=== PATIENT | female | born 1960 | race Asian ===

== ENCOUNTER 2016-11-27 17:19 | Emergency (ER) | payer OTHER ==
[2016-11-27 17:46] VITALS: BP 115/65
--- NOTE | 2016-11-27 17:51 | UC ---
UC General HPI - HPI Summary HPI Summary: Patient complaining of FELDMAN, fever, cough and "hot" throat for 1 day. - History of Current Complaint Chief Complaint: UCRespiratory Stated Complaint: CHILLS, ACHES, AND COUGH Time Seen by Provider: 11/27/16 17:46 Hx Obtained From: Patient Timing: Constant Onset Severity: Moderate Current Severity: Moderate Pain Intensity: 7 Associated Signs & Symptoms: Positive: Cough, Fever, Headache - Allergy/Home Medications Allergies/Adverse Reactions: Allergies Allergy/AdvReac Type Severity Reaction Status Date / Time Pollen Extract Allergy Severe SNEEZING, Verified 11/27/16 17:46 CONGESTION PMH/Surg Hx/FS Hx/Imm Hx Previously Healthy: Yes Endocrine History Of: Denies: Diabetes, Thyroid Disease, Hyperthyroidism, Hypothyroidism, Dyslipidemia Cardiovascular History Of: Denies: Cardiac Disorders, Hypertension, Pacemaker/ICD, Myocardial Infarction , Congestive Heart Failure, Atrial Fibrillation, Deep Vein Thrombosis, Bleeding Disorders Respiratory History Of: Denies: COPD, Asthma, Bronchitis, Pneumonia, Pulmonary Embolism GI/ History Of: Denies: Gastroesophageal Reflux, Ulcer, Gastrointestinal Bleed, Gall Bladder Disease, Kidney Stones, Diverticulitis, Renal Disease, Urosepsis Neurological History Of: Denies: TIA, CVA, Dementia, Seizures, Migraine Psychological History Of: Denies: Anxiety, Depression, Bipolar Disorder, Schizophrenia, Post Traumatic Stress Disorder Cancer History Of: Denies: Lung Cancer, Colorectal Cancer, Breast Cancer, Prostate Cancer, Cervical Cancer Other History Of: Negative For: HIV, Hepatitis B, Hepatitis C, Anticoagulant Therapy - Surgical History Surgical History: Yes Surgery Procedure, Year, and Place: TUBAL LIGATION - Family History Known Family History: Positive: Cardiac Disease, Hypertension - Social History Alcohol Use: None Substance Use Type: None Smoking Status (MU): Never Smoked Tobacco Have You Smoked in the Last Year: No Review of Systems Constitutional: Fever, Chills, Fatigue Skin: Negative Eyes: Negative ENT: Sore Throat, Nasal Discharge Respiratory: Shortness Of Breath, Cough Cardiovascular: Negative Gastrointestinal: Negative Genitourinary: Negative Motor: Negative Neurovascular: Negative Musculoskeletal: Myalgia Neurological: Headache Psychological: Negative All Other Systems Reviewed And Are Negative: Yes Physical Exam Triage Information Reviewed: Yes Appearance: No Pain Distress, Well-Nourished, Ill-Appearing Vital Signs: Initial Vital Signs Temp 100.6 F 11/27/16 17:43 Pulse 106 11/27/16 17:43 Resp 20 11/27/16 17:43 BP 115/65 11/27/16 17:43 Pulse Ox 99 11/27/16 17:43 Vital Signs Reviewed: Yes Eye Exam: Normal Eyes: Positive: Conjunctiva Clear ENT: Positive: Hearing grossly normal, Pharyngeal erythema, Nasal congestion, TM red, Muffled/hoarse voice Dental Exam: Normal Neck exam: Normal Neck: Positive: Supple, Nontender, No Lymphadenopathy Respiratory: Positive: Chest non-tender, Lungs clear, Normal breath sounds Cardiovascular: Positive: No Murmur, Pulses Normal, Tachycardia Abdominal Exam: Normal Abdomen Description: Positive: Nontender, No Organomegaly, Soft Bowel Sounds: Positive: Present Musculoskeletal Exam: Normal Musculoskeletal: Positive: Strength Intact, ROM Intact, No Edema Neurological Exam: Normal Neurological: Positive: Alert, Muscle Tone Normal Psychological Exam: Normal Skin Exam: Normal Course/Dx - Course Course Of Treatment: hx btained, exam performed, rapid flu obtained, - Differential Dx - Multi-Symptom Provider Diagnoses: URI. COUGH. FEVER Discharge - Discharge Plan Condition: Stable Disposition: HOME Patient Education Materials: Upper Respiratory Infection (ED) Forms: *Work Release Additional Instructions: Take the medications as prescribed. Continue with ibuprofen or Tylenol for pain and fever. Get plenty of rest and increase your fluid intake. Viral illness can take a good week to finish. Follow up with any worsening symptoms.
== END 2016-11-27 18:47 | disposition home or self-care (01) ==
LOC: UCEAST 17:19
DX: J06.9 Acute upper respiratory infection, unspecified (principal); R05 Cough; R50.9 Fever, unspecified
CPT/HCPCS: 87502; 99212; G0463

== ENCOUNTER 2017-03-20 10:12 | Emergency (ER) | payer OTHER ==
[2017-03-20 11:22] VITALS: BP 151/89
--- NOTE | 2017-03-20 12:09 | UC ---
UC General HPI - HPI Summary HPI Summary: TODAY WHILE AT WORK PT'S BOSS STARTED ORDERING HER AROUND. HE IS APPARENTLY QUITE CONFRONTATIONAL AND PT IS LEGITIMATELY AFRAID OF HIM. THIS IS NOT NEW. TODAY SHE WAS SO SCARED SHE BECAME QUITE ANXIOUS, HAD HEART PALPITATIONS AND WAS TEARFUL. STARTED RAMBLING AND MIXED UP HER GREEK AND SINGAPOREAN. CO-WORKERS WERE CONCERNED ABOUT THIS AND DROPPED HER OFF HERE FOR EVALUATION. HER FRIEND AND UNION LIAISON MET HER HERE AND PT WAS ABLE TO CALM DOWN. - History of Current Complaint Chief Complaint: UCGeneralIllness Stated Complaint: HAS GAS Time Seen by Provider: 03/20/17 11:23 Hx Obtained From: Patient, Family/Farm Assistant - MANAGER IMMUNOLOGY/FRIEND Onset/Duration: Sudden Onset, Lasting Hours, Still Present Timing: Constant Onset Severity: Moderate Current Severity: Moderate Pain Intensity: 0 Associated Signs & Symptoms: Positive: Palpitations, Other - ANXIETY - Allergy/Home Medications Allergies/Adverse Reactions: Allergies Allergy/AdvReac Type Severity Reaction Status Date / Time Pollen Extract Allergy Severe SNEEZING, Verified 11/27/16 17:46 CONGESTION PMH/Surg Hx/FS Hx/Imm Hx Previously Healthy: Yes Endocrine History Of: Denies: Diabetes, Thyroid Disease, Hyperthyroidism, Hypothyroidism, Dyslipidemia Cardiovascular History Of: Denies: Cardiac Disorders, Hypertension, Pacemaker/ICD, Myocardial Infarction , Congestive Heart Failure, Atrial Fibrillation, Deep Vein Thrombosis, Bleeding Disorders Respiratory History Of: Denies: COPD, Asthma, Bronchitis, Pneumonia, Pulmonary Embolism GI/ History Of: Denies: Gastroesophageal Reflux, Ulcer, Gastrointestinal Bleed, Gall Bladder Disease, Kidney Stones, Diverticulitis, Renal Disease, Urosepsis Neurological History Of: Denies: TIA, CVA, Dementia, Seizures, Migraine Psychological History Of: Denies: Anxiety, Depression, Bipolar Disorder, Schizophrenia, Post Traumatic Stress Disorder Cancer History Of: Denies: Lung Cancer, Colorectal Cancer, Breast Cancer, Prostate Cancer, Cervical Cancer Other History Of: Negative For: HIV, Hepatitis B, Hepatitis C, Anticoagulant Therapy - Surgical History Surgical History: Yes Surgery Procedure, Year, and Place: TUBAL LIGATION, EYE SX - Family History Known Family History: Positive: Cardiac Disease, Hypertension - Social History Alcohol Use: None Substance Use Type: None Smoking Status (MU): Never Smoked Tobacco Have You Smoked in the Last Year: No Review of Systems Constitutional: Negative Respiratory: Negative Cardiovascular: Palpitations Gastrointestinal: Negative Psychological: Anxious All Other Systems Reviewed And Are Negative: Yes Physical Exam Triage Information Reviewed: Yes Appearance: Well-Appearing, No Pain Distress, Well-Nourished, Other: - ANXIOUS, TEARFUL Vital Signs: Initial Vital Signs Temp 98.3 F 03/20/17 10:21 Pulse 81 03/20/17 10:21 Resp 18 03/20/17 10:21 BP 153/83 03/20/17 10:21 Pulse Ox 100 03/20/17 10:21 Vital Signs Reviewed: Yes Eyes: Positive: Conjunctiva Clear ENT: Positive: Hearing grossly normal Neck: Positive: Supple Respiratory Exam: Normal Cardiovascular Exam: Normal Abdomen Description: Positive: Soft Musculoskeletal: Positive: No Edema Neurological: Positive: Alert Psychological: Positive: Age Appropriate Behavior, Other: - ANXIOUS, TEARFUL Skin: Negative: rashes Course/Dx - Course Course Of Treatment: PT QUITE DISTRESSED ABOUT ENCOUNTER WITH HER BOSS. JEREMI STOKES DESCRIBED HIM A BULLY AND STATES SHE IS GOING TO RESOLVE THE ISSUE. PT FEELING BETTER. - Differential Dx - Multi-Symptom Provider Diagnoses: ANXIETY Discharge - Discharge Plan Condition: Stable Disposition: HOME Patient Education Materials: Anxiety (ED) Referrals: Mansoor Penaloza MD [Primary Care Provider] - If Needed Additional Instructions: YOUR SYMPTOMS ARE LIKELY DUE TO YOUR ACUTE ANXIETY STEMMING FROM THE ENCOUNTER WITH YOUR BOSS. KEEP IN CONTACT WITH YOUR MANAGER IMMUNOLOGY TO TRY TO RESOLVE THE CONFLICT. GO TO THE ER WITHOUT FAIL IF YOUR SYMPTOMS PERSIST.
== END 2017-03-20 12:07 | disposition home or self-care (01) ==
LOC: UCEAST 10:12
DX: F41.9 Anxiety disorder, unspecified (principal)
CPT/HCPCS: 99212; G0463

== ENCOUNTER 2018-04-12 10:18 | Emergency (ER) | payer OTHER ==
--- OUTSIDE RECORDS SUMMARY | 2018-04-12 10:22 | XMS REPORT ---
:1960 External Reference #:[id number] Author Organization [facility] Address [address] [place] [address] [place] [address] Phone [phone] Care Team Providers Name Role Phone Mansoor Penaloza MD Primary Care Physician Unavailable Payers Type Date Identification Numbers Payment Provider Subscriber Commercial Policy Number: [id number] [employer] BELEM BERMAN Group Number: [id number] [id number] PayID: [id number] [place] [address] Workers Compensation Onset: 2016 PayID: [id number] Workers Compensation BELEM BERMAN Problems Date Description Provider Status Onset: 09/14/2016 Carpal tunnel syndrome of left wrist Phillip Cohcran MD Active Family History Date Family Member(s) Problem(s) Comments General No Current Problems Social History Type Date Description Comments Lives With Occupation diesel service technician ETOH Use Never used alcohol Smoking Patient has never smoked Exercise Type/Frequency Exercises regularly Allergies, Adverse Reactions, Alerts Date Description Reaction Status Severity Comments 09/14/2016 NKDA active Medications Medication Date Status Form Strength Qnty SIG Indications Ordering Provider Celebrex Active Capsules 100mg 60caps 1 tab by M75.41 David Cotter 017 mouth Adeola, twice a MD day as needed Naproxen Active Tablets 500mg 90tabs 1 po bid M75.41 David Cotter 016 prn pain MD Adeola Allergy D-12 0000/0 Active Tablets ER 5-120mg Unknown 000 12HR Vital Signs Date Vital Result Comment 04/03/2018 Height 61 inches 5'1" Weight 155.00 lb Heart Rate 76 /min BP Systolic 128 mmHg BP Diastolic 78 mmHg Pain Level 3 BMI (Body Mass Index) 29.3 kg/m2 12/05/2016 Height 61.5 inches 5'1.50" Weight 155.00 lb Heart Rate 78 /min BP Systolic 117 mmHg BP Diastolic 80 mmHg Pain Level 4 BMI (Body Mass Index) 28.8 kg/m2 10/24/2016 Height 61.5 inches 5'1.50" Weight 155.00 lb BP Systolic 132 mmHg BP Diastolic 80 mmHg Respiratory Rate 16 /min Pain Level 0 BMI (Body Mass Index) 28.8 kg/m2 09/28/2016 Height 64 inches 5'4" Weight 152.00 lb Heart Rate 60 /min Respiratory Rate 16 /min Pain Level 0 + Numbness and tingling BMI (Body Mass Index) 26.1 kg/m2 09/14/2016 Height 64 inches 5'4" Weight 152.00 lb Heart Rate 60 /min Respiratory Rate 16 /min Pain Level 5 BMI (Body Mass Index) 26.1 kg/m2 Results Description No Information Procedures Date CPT Code Description Status 04/03/2018 44657 Inject/Drain Joint/Bursa Major Completed Encounters Type Date Location Provider CPT E/M Dx Office Visit 12/05/2016 [facility], [address] M75.41 3:30p Chloe ZHANG Office Visit 10/24/2016 [facility], [address] M75.41 1:00p Chloe ZHANG S43.421A Office Visit 09/28/2016 8:40a [facility] [place] [address] G56.02 [facility] Office Visit 09/14/2016 10:00a [facility] [place] [address] G56.02 C.M.Estefany S43.421A M79.601 R20.2 R20.0 Plan of Care Future Appointment(s):06/03/2018 9:00 am - [facility] MD [facility]04/03/2018 - [facility], [id number] Effusion , left kneeNew Therapy:Physical TherapyFollow up:Follow up: 6 [id number] Pain in left kneeNew Therapy:Physical Therapy
--- NOTE | 2018-04-12 10:44 | UC ---
Skin Complaint HPI - HPI Summary HPI Summary: 58 y/o female presents to the urgent care accompany by c/o a rash on bilateral lower legs for the last couple 1 1/2 weeks. translates , but Pt understand Bruneian. Pt has taking taking Zyrtec, Benadryl topical cream and OTC poison larisa type creams without any relief of symptoms. states she is allergic to alcohol. His has left knee tapped about the same time and Orthopedic Dr use an alcohol swabs. He is not sure if that triggered the rahs or that his was doing some gardening kneeling. She denies any new socks, creams/lotions, bugs/bug bites, wading in pond/burt/standing water. She also states her B/L ear itches a lot. Pt denies eating or drinking something different. Pt denies fever, SOB, chest pain, abdominal pain, N/v/D - History of Current Complaint Time Seen by Provider: 04/12/18 10:41 Stated Complaint: RASH Hx Obtained From: Patient Hx Last Menstrual Period: menopausal Onset/Duration: Gradual Onset, Lasting Weeks - 1 1/2 week, Still Present Skin Exposure Onset/Duration: Weeks Ago - 1 1/2 week Timing: Constant Onset Severity: Mild Current Severity: Moderate Pain Intensity: 0 Pain Scale Used: 0-10 Numeric Location: Discrete - B/L lower legs w/ itchy rash Character: Pruritus, Redness Aggravating Factor(s): Touch Alleviating Factor(s): OTC Meds Associated Signs & Symptoms: Positive: Rash. Negative: Fever, Chills, Drainage , Tenderness Related History: Possible Reaction to: Environmental Exposure - Allergy/Home Medications Allergies/Adverse Reactions: Allergies Allergy/AdvReac Type Severity Reaction Status Date / Time pollen extracts Allergy Eyes Verified 04/12/18 11:03 Itchy/Swollen/Red/Watery Review of Systems Constitutional: Negative Skin: Rash - B/L lower legs w/ an itchy rash Eyes: Negative ENT: Ear Ache - RT itchy ear Respiratory: Negative Cardiovascular: Negative Gastrointestinal: Negative Genitourinary: Negative Motor: Negative Neurovascular: Negative Musculoskeletal: Negative Neurological: Negative Psychological: Negative Is Patient Immunocompromised?: No All Other Systems Reviewed And Are Negative: Yes PMH/Surg Hx/FS Hx/Imm Hx Previously Healthy: Yes - Pt denies PMHX Other History Of: Negative For: HIV, Hepatitis B, Hepatitis C, Anticoagulant Therapy - Surgical History Surgical History: Yes Surgery Procedure, Year, and Place: TUBAL LIGATION, EYE SX - Family History Known Family History: Positive: Cardiac Disease, Hypertension - Social History Occupation: Employed Full-time Lives: With Family Alcohol Use: None Substance Use Type: None Smoking Status (MU): Never Smoked Tobacco Have You Smoked in the Last Year: No Physical Exam - Summary Physical Exam Summary: Vital Signs Reviewed: Yes General: well developed, well nourished female sitting in the examining table w/ o any apparent distress. Eyes: Positive: Conjunctiva Clear - PERRLA, EOMI ENT: Positive: Normal ENT inspection, Hearing grossly normal, Pharynx normal, TMs normal Neck: Positive: Supple, Nontender, No Lymphadenopathy Respiratory: Positive: Chest nontender, Lungs clear, Normal breath sounds Cardiovascular: Positive: RRR, No Murmur, Pulses Normal Abdomen Description: Positive: Nontender, No Organomegaly, Soft. Negative: CVA Tenderness (R), CVA Tenderness (L) Bowel Sounds: Positive: Present Musculoskeletal: Positive: Strength Intact, ROM Intact, No Edema Neurological Exam: Normal Psychological Exam: Normal Skin: Positive: rashes - B/L legs bite with surrounding erythema, non tender to palpation. tick no longer present, no swelling or drainage observed. Triage Information Reviewed: Yes Course/Dx - Course Course Of Treatment: 58 y/o female presents to the urgent care accompany by c/o a rash on bilateral lower legs for the last couple 1 1/2 weeks. translates , but Pt understand Bruneian. Pt has taking taking Zyrtec, Benadryl topical cream and OTC poison larisa type creams without any relief of symptoms. states she is allergic to alcohol. His has left knee tapped about the same time and Orthopedic Dr use an alcohol swabs. He is not sure if that triggered the rahs or that his was doing some gardening kneeling. She denies any new socks, creams/lotions, bugs/bug bites, wading in pond/burt/standing water. She also states her B/L ear itches a lot. Pt denies eating or drinking something different. Pt denies fever, SOB, chest pain, abdominal pain, N/v/D. Hx obtained. Pt w/ a erythematous discrete maculopapular eruption on examiantion w/ signs of excoriation on examination. Pt's rash is unspecified , probably contact dermatitis. PT Rx Prednisone, triamcinolone topical cream and Benadryl PO for pruritus. Pt advised if not improvement or worsening of symptoms to return to the clinic or f/u with PCP for further treatment.PT understood and agreed with D/C instructions - Differential Diagnoses - Skin Complaint Differential Diagnoses: Abscess, Contact Dermatitis, Drug Rash, Local Allergic Reaction, Poison Larisa, Poison [place], Tick Born Illness, Urticaria - Diagnoses Provider Diagnoses: 1- Unspecified acute rash Discharge - Sign-Out/Discharge Documenting (check all that apply): Discharge/Admit/Transfer - D/c home - Discharge Plan Condition: Stable Disposition: HOME Prescriptions: diPHENhydraMINE PO* [Benadryl PO 25 MG TAB*] 25 mg PO TID PRN #20 tab PRN Reason: pruritus predniSONE TAB* [Deltasone 20 MG TAB*] 20 mg PO DAILY #11 tab Triamcinolone 0.1% CREAM (NF) [Kenalog 0.1% Cream (NF)] 1 applic TOPICAL BID #1 tube Patient Education Materials: Acute Rash (ED) Referrals: Mansoor Penaloza MD [Primary Care Provider] - 3 Days Additional Instructions: 1- Use the Triamcinolone topical cream to alleviate itching.Take Prednisone PO as directed to alleviate symptoms. 2-Take Benadryl PO to alleviate itchiness. 3-If symptoms do not improve or worsen please f/u with your PCP 3 days or return to the urgent care for further evaluation and treatment. - Billing Disposition and Condition Condition: STABLE Disposition: Home
[2018-04-12 11:03] VITALS: BP 119/68
== END 2018-04-12 11:35 | disposition home or self-care (01) ==
LOC: UCEAST 10:18
DX: R21 Rash and other nonspecific skin eruption (principal); H92.01 Otalgia, right ear; Z82.49 Family history of ischemic heart disease and other diseases of the circulatory system
CPT/HCPCS: 99212; G0463

== ENCOUNTER 2019-01-05 15:24 | Emergency (ER) | payer OTHER ==
--- OUTSIDE RECORDS SUMMARY | 2019-01-05 15:31 | XMS REPORT | Continuity of Care Document ---
:1960 External Reference #:[id number] Author Name Carlos Rodríguez Address [address] [facility] [facility] [place] [address] Care Team Providers Name Role Phone Nina Lambert Care Team Information Tack Welder Unavailable Nina Lambert Primary Care Physician Unavailable Payers Date Identification Numbers Payment Provider Subscriber Policy Number: [id number] [facility] BELEM BERMAN PayID: [id number] [address] [place] [address] Advance Directives Description No Information Available Problems Description No Information Family History Date Family Member(s) Observation Comments Mother 94 Children 3 chilren, all healthy. [place], [place]. Siblings 2 brother, 3 sisters. DM. 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 Marital Status Legal Status: Marital Status Came to the [place] from [place] 02/19/1985. Lives With Spouse and mother in law. Lives With children 1 close by, 1 in [place], 1 in [facility]. 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 Tobacco Use Start: Unknown Never Smoked Cigarettes Smoking Status Reviewed: 01/17/18 Never Smoked Cigarettes ETOH Use Denies alcohol use Exercise Exercises sporadically does calisthenics at Type/Frequency home. 3 times weekly 1/2 hour. Seat Belt/Car Seat Always uses seat belt Dom Violence Screen screening has been done Dom Violence Screen feels safe home, at work, and in the community. Allergies, Adverse Reactions, Alerts Date Description Reaction Status Severity Comments 09/18/2013 Outside Allergens Active Medications Medication Date Status Form Strength Qnty SIG Indications Ordering Provider Hydrocortisone 01/21/ Active Cream 2.5% 30gm apply K64.8 Nina Khanna 2018 small Fausto, amount M.D. two times daily Zyrtec Allergy / Active Capsules 10mg use 1 by Unknown 0000 mouth q.d Naproxen / Active Tablets 500mg 1 by Unknown 0000 mouth twice a day with food Proctocort 01/17/ Hx Cream 1% 28.4u apply K64.8 Nina Khanna 2018 - nits fuentes Lambert 01/21/ amount M.D. 2018 two times daily Acetaminophen-Co 03/11/ Hx Tablets 300-30mg 30tab 1 by 724.79 twin Servin #3 2015 - s mouth M.D. 11/04/ every 6 2016 hours as needed Benzonatate 03/11/ Hx Capsules 200mg 60cap 1 by 786.2 Felicitas Servin - s mouth M.D. 11/04/ three 2016 times a day as needed for cough Zyrtec Allergy 09/18/ Hx Tablets 10mg 30tab 1 po qd Family 2013 - s Medicine 01/17/ [facility] 09/18/ Hx low back 724.2 Nina Khanna Evaluate And 2012 - pain Fausto Treat 03/11/ poor M.DRober 2015 core strength . Nasonex / Hx Suspension 50mcg/Act 2 sprays Unknown 0000 - in each 01/17/ nostril 2018 daily Symbicort / Hx Aerosol 160-4.5mc 2 puff Unknown 0000 - g/Act twice a day 2018 Immunizations CPT Code Status Date Vaccine Lot # [id number] Given 08/13/2016 Influenza Vac, Quadriv[place] [address] Given 08/13/2016 Influenza Vac, Quadrivalent, Slit Virus, Im [id number] 82659 Given 09/16/2015 Influenza Vac, Quadrivalent, Slit Virus, Im [id number] Given 08/06/2011 Tdap Tetanus, W Pertussis 92769 Given 08/06/2011 DO Not Use Split Influenza Virus Vaccine 34696 Given 10/08/2010 DO Not Use Split Influenza Virus Vaccine 16031 Given 10/09/2009 H1N1 Virus Vaccine 64831 Given 07/15/2009 DO Not Use Split Influenza Virus Vaccine 62469 Given 11/22/2002 Tetanus And Diptheria Adult Preservative Free >7Yrs Vital Signs Date Vital Result Comment 12/08/2018 3:07pm BP Systolic 116 mmHg BP Diastolic 64 mmHg Heart Rate 72 /min Body Temperature 98.7 F Respiratory Rate 16 /min Height 61 inches 5'1" Weight 157.00 lb BMI (Body Mass Index) 29.7 kg/m2 12/04/2018 3:40pm BP Systolic 110 mmHg BP Diastolic 70 mmHg Heart Rate 76 /min Body Temperature 97.9 F Respiratory Rate 20 /min Weight 161.00 lb 09/24/2018 5:34pm BP Systolic 110 mmHg BP Diastolic 72 mmHg Heart Rate 56 /min Body Temperature 97.7 F Respiratory Rate 17 /min 01/17/2018 1:57pm BP Systolic 110 mmHg BP Diastolic 80 mmHg Heart Rate 76 /min Body Temperature 98.1 F Respiratory Rate 18 /min Height 61 inches 5'1" Weight 158.00 lb BMI (Body Mass Index) 29.9 kg/m2 11/04/2015 12:47pm BP Systolic 110 mmHg BP Diastolic 68 mmHg Heart Rate 68 /min Body Temperature 98.1 F Respiratory Rate 18 /min Height 61 inches 5'1" Weight 152.00 lb BMI (Body Mass Index) 28.7 kg/m2 03/11/2015 3:58pm BP Systolic 110 mmHg BP Diastolic 70 mmHg Heart Rate 76 /min Body Temperature 98.4 F Respiratory Rate 16 /min Height 61 inches 5'1" Weight 154.00 lb BMI (Body Mass Index) 29.1 kg/m2 09/18/2013 1:06pm BP Systolic 112 mmHg BP Diastolic 72 mmHg Heart Rate 64 /min Body Temperature 97.7 F Height 61 inches 5'1" Weight 147.38 lb BMI (Body Mass Index) 27.8 kg/m2 Results Test Date Facility Test Result H/L Range Note Laboratory test [facility] Mycobacterial See Comment 1, 2 finding 8 Culture Laboratory test [facility] Hemoglobin A1c 5.9 % High 4.1- 5.7 finding 8 (607)- - ([facility]) Comprehensive Jose Viviane ([facility]) Sodium 142 mEq/L 134-149 Metabolic Prof 8 Potassium 3.9 mEq/L 3.6-5.5 Chloride 100 mEq/L 94-112 Carbon Dioxide 29 mEq/L 21-32 Glucose 124 mg/dL High 70-105 BUN 10 mg/dL 6-26 Creatinine 0.6 mg/dL 0.6-1.4 BUN/Creat Ratio 16.7 CALC 8.0-36.0 Calcium 9.3 mg/dL 8.6-10.2 Total Protein 7.4 g/dL 6.4-8.3 Albumin 4.8 g/dL 3.8-5.5 Globulin 2.6 g/dL 2.0-4.8 A/G Ratio 1.8 CALC 0.6-2.3 Alk. Phosphatase 48 U/L 30-110 Alt (SGPT) 16 U/L 7-35 Ast (Sgot) 15 U/L 5-34 Total Bilirubin 0.7 mg/dL 0.2-1.3 GFR Non- >60 ml/min/1.73m^ >=60 GFR >60 ml/min/1.73m^ >=60 Lipid Profile 01/10/2018 Jose Viviane ([facility]) Cholesterol 229 mg/dL High 120-200 Triglycerides 97 mg/dL 30-200 HDL Cholesterol 74 mg/dL 30-85 LDL (Calculated) 136 CALC High 0-129 VLDL Cholesterol 19 mg/dL 0-50 HDL Risk Factor 3.1 CALC 0.0-4.4 CBC Electronic a 01/10/2018 Jose Viviane ([facility]) WBC 6.1 x10^3/UL 4.0- 10.0 RBC 4.65 x10^6/UL 3.93-6.00 HGB 13.7 g/dL 12.0-17.0 HCT 43 % 35-50 MCV 91.6 fL 80.0-95.0 MCH 29.5 pg 25.6-32.2 MCHC 32.2 g/dL 32.2-36.0 RDW-CV 13.8 % 11.6-14.4 PLT 207 x10^3/UL 163-400 MPV 9.5 fL 9.4-12.4 Jose# 2.94 x10^3/UL 1.56-6.13 Lymph# 2.63 x10^3/UL 1.18-3.74 Hinds# 0.33 x10^3/UL 0.24-0.82 Eos # 0.2 x10^3/UL 0.0-0.5 Baso # 0.03 x10^3/UL 0.01-0.08 Jose% 48.2 % 34.0-70.0 Lymph % 43.2 % 20.0-52.0 Hinds% 5.4 % 5.0-12.0 Eos% 2.5 % 0.7-7.0 Baso% 0.5 % 0.1-1.2 Laboratory test 01/10/2018 Jose Viviane ([facility]) PSA 0.4 ng/mL 0.0-4.0 finding Rapid Influenza A 11/27/2016 [facility] Influenza A NEGATIVE N Negative 3 & B Molecular Molecular Influenza B Molecular NEGATIVE N Negative Laboratory test finding 09/16/2015 Jose Viviane (a) TSH 1.08 mIU/L 0.50-6.00 4 Complete Blood Count 09/16/2015 Garcia Viviane (a) WBC 4.3 x10^3/UL 3.6-9.6 RBC 4.36 x10^6/UL 3.90-5.70 HGB 13.3 g/dL 12.1-17.2 HCT 39 % 36-50 MCV 90.0 fL 82.2-97.4 MCH 30.6 pg 27.6-33.3 MCHC 33.9 g/dL 33.0-35.5 RDW 14.4 % High 11.6-13.7 PLT 197 x10^3/UL 150-400 MPV 7.0 fL Low 7.4-10.4 Gran # 1.5 x10^3/UL 1.5-7.2 Lymph# 2.6 x10^3/UL 0.7-4.9 Hinds# 0.2 x10^3/UL 0.1-0.9 Gran % 32.9 % Low 42.2-75.2 Lymph % 61.5 % High 20.5-51.1 Hinds% 5.6 % 1.7-9.3 Lipid Profile 09/16/2015 Garcia Viviane (a) Cholesterol 233 mg/dL High 120-200 Triglycerides 86 mg/dL 30-200 HDL Cholesterol 70 mg/dL 30-85 LDL (Calculated) 146 CALC High 0-129 VLDL Cholesterol 17 mg/dL 0-50 HDL Risk Factor 3.3 CALC 0.0-4.4 Comprehensive Metabolic 09/16/2015 Garcia Viviane (a) Sodium 143 mEq/L 134-149 Prof Potassium 3.7 mEq/L 3.6-5.5 Chloride 101 mEq/L 94-112 Carbon Dioxide 30 mEq/L 21-32 Glucose 93 mg/dL 70-105 BUN 11 mg/dL 6-26 Creatinine 0.6 mg/dL 0.6-1.4 BUN/Creat Ratio 18.3 CALC 8.0-36.0 Calcium 9.2 mg/dL 8.6-10.2 Total Protein 7.2 g/dL 6.4-8.3 Albumin 4.6 g/dL 3.8-5.5 Globulin 2.6 g/dL 2.0-4.8 A/G Ratio 1.8 CALC 0.6-2.3 Alk. Phosphatase 44 U/L 30-110 Alt (SGPT) 14 U/L 7-35 Ast (Sgot) 21 U/L 5-34 Total Bilirubin 0.6 mg/dL 0.2-1.3 GFR Non- >60 ml/min/1.73m^ >=60 GFR >60 ml/min/1.73m^ >=60 Urine Culture And 02/08/2014 [facility] Urine Culture (SEE NOTE) 5 Sensitivities Rapid Influenza A B 10/13/2013 [facility] Rapid Influenza A (SEE NOTE) 6 Antigen B Antigen Ua - Non Micro (a) 09/18/2013 [facility] Appearance CLEAR (607)- - Color YELLOW Glucose NEG Bilirubin NEG Ketones NEG SP Grav 1.015 Blood NEG PH 7.0 Protein NEG Urobil 0.2 Nitrite NEG Leukocytes ([facility]) NEG Comprehensive Metabolic 09/05/2013 Garcia Viviane (a) Albumin 4.5 g/dL 3.8-5.5 Prof Alk. Phos. 43 U/L 30-110 Alt (SGPT) 18 U/L 7-35 Ast (Sgot) 17 U/L 5-34 BUN 17 mg/dL 6-26 Calcium 9.4 mg/dL 8.6-10.2 Chloride 100 mEq/L 94-112 Creatinine 0.6 mg/dL 0.6-1.4 Carbon Dioxide 28 mEq/L 21-32 Glucose 94 mg/dL 70-105 Sodium 138 mEq/L 134-149 Total Bilirubin 1.0 mg/dL 0.2-1.3 Total Protein 6.9 g/dL 6.3-8.1 Potassium 4.0 mEq/L 3.6-5.5 Globulin 2.4 g/dL 2.0-4.8 A/G Ratio 1.9 Calc 0.6-2.3 BUN/Creat Ratio 26.6 Calc 8.0-36.0 Lipid Profile 09/05/2013 Garcia Viviane (a) Cholesterol 230 mg/dL High 120-200 HDL 74 mg/dL 30-85 Triglycerides 70 mg/dL 30-200 HDL Risk Factor 3.1 CALC 0.0-4.4 LDL (Calculated) 142 CALC High 0-129 VLDL (Calculated) 14 mg/dL 0-50 CBC Electronic ([facility]) 09/05/2013 Family Medicine WBC 4.7 3.6-9.6 (607)- - RBC 4.26 3.90-5.70 Hemoglobin ([facility]/CTX) 13.2 g/dL 12.1 - 17.2 Hematocrit ([facility]/CTX) 38.9 % 36.1 - 50.3 Platelets 190 10^3/ul 150-400 Lymph% 51.5 High 20.5-51.1 Mixed% 6.4 Neutrophils % 42.1 Mean Corpuscular Vol 91 82.2-97.4 Mean Corpuscular Hemoglobin 31.1 27.6-33.3 Mean Corpuscular Hemo Concen 34.0 32.0-36.0 RDW 13.9 High 11.6-13.7 Mean Platelet Volume 6.5 6.5-11.0 1 [id number] 2 SOURCE: SYNOVIAL FLUID, NOT OTHERWISE SPECIFIED, JOINT FLUID MYCOBACTERIAL CULTURE FINAL No growth after 42 days of incubation. Test Performed by: [facility] - [address] [address] 3 Copper Tapper: [id number] RIGO IVEY 4 FASTING 5 RUN DATE: 02/10/14 [facility] LAB LIVE PAGE 1 RUN TIME: [address] [place] [id number] Specimen Inquiry Name: BELEM COSME : [address]: Geovani Mason MD Acct: [id number] Unit: [id number] AGE: 54 Location: [facility] Re02/08/14 SEX: F Status: DEP ER SPEC: [id number] KORY: 02/08/14-[address] [facility] [address]: Geovani Mason MD REQ: [id number] RECD: 02/08/14 STATUS: AMMON HA DR: Nina Lambert MD _ SOURCE: URINE SPDESC: ORDERED: Urine Culture Procedure Result Verified Site Urine Culture Final 02/10/14- 0930 ML Organism 1 KLEBSIELLA PNEUMONIAE Kimberly Count >100,000 (Many) CFU/ML 1. KLEBSIELLA PNEUMONIAE M.I.C. RX --------- ------ Ampicillin R Cefazolin <=4 S Cefepime <=1 S Ceftriaxone <=1 S Ciprofloxacin <=0.25 S Gentamicin <=1 S Levofloxacin <=0.12 S Meropenem <=0.25 S Nitrofurantoin 64 I Tetracycline <=1 S Pipercillin/Tazobactam <=4 S Trimethoprim/Sulfamethoxazole <=20 S Amoxicillin/Clavulanic Acid <=2 S Aztreonam <=1 S Contact the Microbiology Department for any additional antibiotic reporting. END OF REPORT * ML=Testing performed at Main Lab DEPARTMENT OF PATHOLOGY, [facility] [employer] [place] [address] Surjit Guillermo M.D. Director [facility] Permit #[id number] RUN DATE: 10/13/13 [facility] LAB LIVE PAGE 1 RUN TIME: [address] [place] [id number] Specimen Inquiry Name: BELEM COSME : [address]: Elli Grande MD Acct: [id number] Unit: [id number] AGE: 53 Location: [facility] Re10/13/13 SEX: F Status: DEP ER SPEC: [id number] KORY: 10/13/13-[address] [facility] [address]: Mary Ellen Ly NP REQ: [id number] RECD: 10/13/13 STATUS: AMMON HA DR: Elli Feng MD _ SOURCE: [facility]: ORDERED: Rapid Flu A B Procedure Result Verified Site Rapid Influenza A B Antigen Final 10/13/13- 2138 ML Organism 1 Negative Influenza A Organism 2 Negative Influenza B Antigen testing by enzyme immunoassay. Cell culture testing can be performed to confirm negative test results and to assist in detecting other viruses that can produce similar clinical symptoms. Please notify Microbiology Lab if further testing is desired. END OF REPORT * ML=Testing performed at Main Lab DEPARTMENT OF PATHOLOGY, [address] [place] [address] Surjit Guillermo M.D. Director [facility] Permit #[id number] Procedures Date Code Description Status 11/18/2018 87474 Electrocardiogram Complete Completed 10/20/2018 68165925 Mammogram Completed 01/17/2018 97867 [facility] SHQ Completed 01/17/2018 16516 Finger Or Heel Stick Completed 11/25/2015 [id number] Mammogram Completed 11/04/2015 61527 [facility]L SHQ Completed 10/18/2014 [id number] Mammogram Completed 10/13/2013 [id number] Mammogram Completed 09/18/2013 45744 CPHL SHQ Completed 10/28/2004 [id number] Colonoscopy Completed Encounters Type Date Location Provider Dx Diagnosis Office Visit 12/04/2018 [facility] Office Janette B30.9 Viral 3: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, CAREER SPECIALIST conjunctivitis, unspecified J00 Acute nasopharyngitis [common cold] Office Visit 09/24/2018 5:40p Main Office Nina Khanna 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, unspecified M25.569 Pain in unspecified knee Z12.31 Encntr screen mammogram for malignant neoplasm of breast Office Visit 01/17/2018 2:00p [facility] Nina Khanna Z00.01 Encounter for Ariela Lambert general adult medical exam w abnormal findings M25.462 Effusion, left knee R73.01 Impaired fasting glucose K64.8 Other hemorrhoids Office Visit 11/04/2015 1:00p [facility] Office Nina Khanna Z00.01 Encounter for Ariela Lambert general adult medical exam w abnormal findings R23.8 Other skin changes Office Visit 03/11/2015 3:40p [facility] Mikael Carvajal, 724.79 Coccyx Disorder Ariela Other 786.2 Cough 715.09 Osteoarthrosis Generalized Multiple Sites Office Visit 09/18/2013 1:00p [facility] Nina Khanna V70.0 Examination Dionte Lambert. General Medical Routine AT [facility] 724.2 Lumbago Plan of Treatment 12/08/2018 - Cortney Couch, Jorje-CJ06.9 Acute upper respiratory infection, thuafnflxcrJ71.9 Viral conjunctivitis, unspecifiedAllComments:~B_~U_Medication Management~b_~u_ Patient Understands medications she's taking? Yes No Are there Barriers to Adherence? Yes No Has the patient been asked about herbal supplements and therapies, and OTC meds? Yes No ~B_~U_Care Plan~b_~u_1. Patient has been queried about patient's goals/preferences and functional/lifestyle goals at relevant visits. If relevant, describe: na2. Treatment goals as explained to the patient: aboveri=outine brooke maintenance and disease prevention 3. Are there barriers to meeting treatment goals? Yes No If Yes, please describe:4. Self-Management goals as described to the patient: Yes No ok to continue zyrtec prn f/u routine and prn
[2019-01-05 15:39] VITALS: BP 135/87
--- NOTE | 2019-01-05 15:41 | UC ---
Skin Complaint HPI - HPI Summary HPI Summary: 58 yo female presents with itchy rash to left leg. She speaks Welsh, but not very well and thus has her son on the phone translating intermittently. They tell me that pt had a left knee arthroscopy for a meniscus injury about 2 weeks ago. About 4-5 days after that pt developed a rash on left lower leg that is itchy. She saw her Ortho doc 2 days ago and was told to take benadryl as it could be a delayed reaction from the materials used during surgery. Pt is here today because rash is spreading up her leg, is still itchy, and benadryl has provided no change. She tells me that this happened about a year or so ago when she had a left knee steroid injection and the rash resolved with prednisone. She denies fever, chills, recent illness, SOB, chest pain. - History of Current Complaint Chief Complaint: UCSkin Time Seen by Provider: 01/05/19 15:40 Stated Complaint: ALLERGIES Hx Obtained From: Patient Hx Last Menstrual Period: post menopause Onset/Duration: Gradual Onset Current Severity: None Pain Intensity: 0 - Allergy/Home Medications Allergies/Adverse Reactions: Allergies Allergy/AdvReac Type Severity Reaction Status Date / Time pollen extracts Allergy Eyes Verified 04/12/18 11:03 Itchy/Swollen/Red/Watery PMH/Surg Hx/FS Hx/Imm Hx - Additional Past Medical History Additional PMH: None Other History Of: Negative For: HIV, Hepatitis B, Hepatitis C, Anticoagulant Therapy - Surgical History Surgical History: Yes Surgery Procedure, Year, and Place: TUBAL LIGATION, EYE SX - Family History Known Family History: Positive: Cardiac Disease, Hypertension - Social History Lives: With Family Alcohol Use: None Substance Use Type: None Smoking Status (MU): Never Smoked Tobacco Have You Smoked in the Last Year: No Review of Systems All Other Systems Reviewed And Are Negative: Yes Constitutional: Positive: Negative Skin: Positive: Rash Respiratory: Positive: Negative Cardiovascular: Positive: Negative Gastrointestinal: Positive: Negative Genitourinary: Positive: Negative Neurovascular: Positive: Negative Neurological: Positive: Negative Psychological: Positive: Negative Physical Exam - Summary Physical Exam Summary: GENERAL: NAD. WDWN. No pain distress. SKIN: LEFT LEG: Lower leg, knee, and distal thigh with scattered non-blanchable mildly erythematous petechiae. No warmth, edema, ecchymosis, or open wound. No urticaria. No calf edema. Negative riki's sign. RIGHT LEG: WNL and no petechiae. NECK: Supple. Nontender. No lymphadenopathy. CHEST: No accessory muscle use. Breathing comfortably and in no distress. CV: Pulses intact. Cap refill <2seconds NEURO: Alert. PSYCH: Age appropriate behavior. Triage Information Reviewed: Yes Vital Signs: Initial Vital Signs Temp 98.8 F 01/05/19 15:32 Pulse 88 01/05/19 15:32 Resp 16 01/05/19 15:32 BP 135/87 01/05/19 15:32 Pulse Ox 97 01/05/19 15:32 Vital Signs Reviewed: Yes Course/Dx - Course Course Of Treatment: I discussed with pt that this could be a delayed hypersensitivity reaction from contact during surgery, but I am most suspicious for ITP brought about by her surgery - although, I would not expect this to itch. She and son say she has never been dx'd with this and no family member that they are aware of. Will draw for CBC, CMP, and ESR and treat her with prednisone. Strongly advised to f/u with PCP this week for a recheck. Go to ED if symptoms worsen. Pt and son voiced understanding. - Diagnoses Provider Diagnosis: Petechiae Discharge - Sign-Out/Discharge Documenting (check all that apply): Patient Departure All imaging exams completed and their final reports reviewed: No Studies - Discharge Plan Condition: Stable Disposition: HOME Prescriptions: predniSONE TAB* [Deltasone 20 MG TAB*] 20 mg PO DAILY #15 tab Patient Education Materials: Contact Dermatitis (DC), Immune Thrombocytopenia ( ED) Referrals: Nina Lambert MD [Primary Care Provider] - As Soon As Possible Additional Instructions: If you develop a fever, shortness of breath, chest pain, new or worsening symptoms - please call your PCP or go to the ED. 1) Please take the prednisone as directed 2) Please schedule a follow up with your primary doctor in 3-5 days for a recheck of your leg 3) If the redness spreads or if you develop new symptoms - please go to the ER - Billing Disposition and Condition Condition: STABLE Disposition: Home
[2019-01-05 18:52] LABS: ABS Basophils 0 10^3/ul (0-0.2); ABS Eosinophils 0.2 10^3/ul (0-0.6); ABS Lymphocytes 2.5 10^3/ul (1.0-4.8); ABS Monocytes 0.3 10^3/ul (0-0.8); ABS Nucleated RBC 0 10^3/ul; Eosinophil % 4.1 %; Hematocrit 40 % (35-47); Hemoglobin 12.9 g/dl (12.0-16.0); Lymphocyte % 50.1 %; Mean Corpuscular HGB Conc 33 g/dl (31-36); Mean Corpuscular Hemoglobin 28 pg (27-31); Mean Corpuscular Volume 87 fL (80-97); Mean Platelet Volume 7.7 fL (7.4-10.4); Nucleated Red Blood Cells % 0.1; Platelet Count 213 10^3/ul (150-450); Red Blood Count 4.56 10^6/ul (4.00-5.40); Red Cell Distribution Width 17 % (10.5-15)
[2019-01-05 19:07] LABS: Albumin 4.3 g/dL (3.2-5.2); Calcium 9.4 mg/dL (8.6-10.3); Potassium 3.7 mmol/L (3.5-5.0); Total Bilirubin 0.4 mg/dL (0.2-1.0)
[2019-01-05 19:13] LABS: Albumin/Globulin Ratio 1.4 (1-3); BUN/Creatinine Ratio 26.2 (8-20); EGFR African American 121.1 (>60); Total Protein 7.3 g/dL (6.4-8.9)
--- NOTE | 2019-01-06 07:35 | UC ---
- Progress Note Progress Note: opened in error Course/Dx - Diagnoses Provider Diagnoses: Petechiae Discharge - Sign-Out/Discharge Documenting (check all that apply): Patient Departure All imaging exams completed and their final reports reviewed: No Studies - Discharge Plan Condition: Stable Disposition: HOME Prescriptions: predniSONE TAB* [Deltasone 20 MG TAB*] 20 mg PO DAILY #15 tab Patient Education Materials: Contact Dermatitis (DC), Immune Thrombocytopenia ( ED) Referrals: Nina Lambert MD [Primary Care Provider] - As Soon As Possible Additional Instructions: If you develop a fever, shortness of breath, chest pain, new or worsening symptoms - please call your PCP or go to the ED. 1) Please take the prednisone as directed 2) Please schedule a follow up with your primary doctor in 3-5 days for a recheck of your leg 3) If the redness spreads or if you develop new symptoms - please go to the ER - Billing Disposition and Condition Condition: STABLE Disposition: Home
[2019-01-06 13:01] LABS: Erythrocyte Sed Rate 18 mm/Hr (0-30)
== END 2019-01-05 16:29 | disposition home or self-care (01) ==
LOC: UCEAST 15:24
DX: R23.3 Spontaneous ecchymoses (principal); Z91.09 Other allergy status, other than to drugs and biological substances
CPT/HCPCS: 36415; 80053; 85025; 85652; 99212; G0463

== ENCOUNTER 2019-07-11 10:19 | Emergency (ER) | payer OTHER ==
[2019-07-11 10:26] VITALS: BP 127/67
--- NOTE | 2019-07-11 10:53 | UC ---
Knee Pain HPI - HPI Summary HPI Summary: 59 yo woman, works for [employer], with a greater than 6 month history of joint pain. Language somewhat limits information: she is here with her son and daughter--in-law, and I spoke with another son by telephone. Has had xrays of the knees in 2018 and again this spring, following a left knee meniscectomy done by Dr. Clifford. Xray shows medial compartment degeneration. Over the past 2 months (time lines hard to ascertain) she has had morning stiffness lasting up to an hour, no hx of fevers, and increasing pain in both hands, but particularly in the right wrist. She reports increasing tightness and stiffness in the left hip and upper leg, making it hard to walk in the morning. She continues to work. She took 2 weeks of celebrex earlier this month with relief of pain, the stopped use. She resumed use about 5 days ago, but it has not given the same amount of pain response. She comes today because her pain is increasing, but not disrupting sleep. Hx of tick bites; reviewed labs from 06/03/19 which showed a sed rate of 66, neg RF and CCP was negative, uric acid normal. She has not been screened for Lyme disease recently as far as I can tell. Family and patient would like Lyme screening done. Pain is not disrupting her sleep. - History of Current Complaint Chief Complaint: UCGeneralIllness Stated Complaint: JOINT PAIN Time Seen by Provider: 07/11/19 10:34 Hx Obtained From: Patient Hx Last Menstrual Period: post menopause Onset/Duration: Gradual Onset, Lasting Weeks Severity Initially: Moderate Severity Currently: Moderate Pain Intensity: 9 Character: Aching, Spasmodic, Stiffness Aggravating Factor(s): Movement, Weight Bearing, Stairs Alleviating Factor(s): Rest - Risk Factors Septic Arthritis Risk Factor: Pre-existing Joint Disease Gout Risk Factor: Age ^ 38 - Allergies/Home Medications Allergies/Adverse Reactions: Allergies Allergy/AdvReac Type Severity Reaction Status Date / Time pollen extracts Allergy Eyes Verified 07/11/19 10:26 Itchy/Swollen/Red/Watery PMH/Surg Hx/FS Hx/Imm Hx Previously Healthy: Yes Other History Of: Negative For: HIV, Hepatitis B, Hepatitis C, Anticoagulant Therapy - Surgical History Surgical History: Yes Surgery Procedure, Year, and Place: TUBAL LIGATION, EYE SX - Family History Known Family History: Positive: Cardiac Disease, Hypertension - Social History Occupation: Employed Full-time Lives: With Family Alcohol Use: None Substance Use Type: None Smoking Status (MU): Never Smoked Tobacco Have You Smoked in the Last Year: No Review of Systems All Other Systems Reviewed And Are Negative: Yes Constitutional: Positive: Fatigue. Negative: Fever Skin: Positive: Negative Eyes: Positive: Negative ENT: Positive: Negative Respiratory: Negative: Shortness Of Breath, Cough Cardiovascular: Negative: Palpitations, Chest Pain Gastrointestinal: Positive: Negative Genitourinary: Positive: Negative Motor: Positive: Decreased ROM Neurovascular: Positive: Negative Musculoskeletal: Positive: Arthralgia, Myalgia Neurological: Positive: Negative Psychological: Positive: Negative Is Patient Immunocompromised?: No Physical Exam Triage Information Reviewed: Yes Appearance: Well-Appearing, Well-Nourished, Pain Distress - mild to moderate Vital Signs: Initial Vital Signs Temp 98 F 07/11/19 10:23 Pulse 68 07/11/19 10:23 Resp 16 07/11/19 10:23 BP 127/67 07/11/19 10:23 Pulse Ox 100 07/11/19 10:23 Eyes: Positive: Conjunctiva Clear ENT: Positive: Pharynx normal Neck: Positive: Supple, Nontender, No Lymphadenopathy Respiratory: Positive: Lungs clear, Normal breath sounds Cardiovascular: Positive: RRR, No Murmur Abdomen Description: Positive: Nontender, No Organomegaly, Soft Musculoskeletal: Positive: Strength Intact, No Edema, ROM Limited @ - boggy swelling dorsum of hand, with diffuse wrist swelling, mild warmth, no erythema. TTP along wrist bones, rom with decreased extension and flextion., Other: - bilateral knee bogginess, no instability, rom full with pain in both with flextion. Left hip with decreased IR and ER. Lumbar spine with good mobility, SLR to 90 degrees bilaterally. Neurological: Positive: Alert, Muscle Tone Normal Diagnostics - Radiology No standard instances Radiology Interpretation Completed By: Radiologist Summary of Radiographic Findings: Bilateral hips with moderate degenerative arthritis per Dr. Mondragon. Right wrist with soft tissue swelling and moderate degenerative arthritis at the scapho-trapezial and CMC joint. Knee Pain Course/Dx - Course Course Of Treatment: here for concern of inadequate pain control with an evolving many month long hx of joint pain. Radiographs consistent with OA changes of the hips and right wrist. Will screen for Lyme although clinical exam is not highly suggestive. Has follow up pending with Dr. Mir. In the meantime, will resume celebrex at increased dose of 200 bid (normal eGFR 01/13), and add tramadol as needed until assessed later this week. PAID INTERN reviewed --had rx hydrocodone Oct 2018 prior to surgery on knee. - Differential Dx/Diagnosis Differential Diagnosis/HQI/PQRI: Sprain, Strain, Other - osteoarthritis Provider Diagnosis: Pain, joint, multiple sites, Primary osteoarthritis, right wrist, Osteoarthritis, hip, bilateral Discharge ED - Sign-Out/Discharge Documenting (check all that apply): Patient Departure All imaging exams completed and their final reports reviewed: Yes - Discharge Plan Condition: Stable Disposition: HOME Prescriptions: celeCOXIB CAP* [CeleBREX CAP*] 200 mg PO BID #14 cap Tramadol HCl 50 mg PO BID PRN #20 tablet MDD 2 PRN Reason: Pain - Moderate Patient Education Materials: Osteoarthritis (ED) Forms: *Work Release Referrals: Nina Lambert MD [Primary Care Provider] - Additional Instructions: Lyme serology is pending along with additional labs. Increase celebrex to 200mg twice daily for one week, and add tramadol as needed for control of pain. Off work until you are assessed by Dr. Mir this week, and I suggest a follow up with Dr. 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 - Billing Disposition and Condition Condition: STABLE Disposition: Home
[2019-07-11 14:50] LABS: Hematocrit 40 % (35-47); Hemoglobin 13.2 g/dL (12.0-16.0); Mean Corpuscular HGB Conc 33 g/dL (31-36); Mean Corpuscular Hemoglobin 29 pg (27-31); Mean Corpuscular Volume 86 fL (80-97); Mean Platelet Volume 7.6 fL (7.4-10.4); Platelet Count 233 10^3/uL (150-450); Red Blood Count 4.62 10^6 /uL (3.70-4.87); Red Cell Distribution Width 17 % (10-15); White Blood Count 5.3 10^3/uL (3.5-10.8)
[2019-07-11 14:58] LABS: Calcium 8.7 mg/dL (8.6-10.3); Potassium 3.9 mmol/L (3.5-5.0); Total Bilirubin 0.5 mg/dL (0.2-1.0)
[2019-07-11 15:03] LABS: Albumin/Globulin Ratio 1.3 (1-3); C Reactive Protein 12.92 mg/L (<8.01); EGFR African American 151.8 (>60); EGFR Non-African American 125.4 (>60)
[2019-07-11 15:19] LABS: ABS Eosinophils 0.2 10^3/ul (0-0.6)
--- NOTE | 2019-07-12 07:57 | UC ---
- Progress Note Progress Note: Lab results come back from July 11, 2019. CBC CMP CRP are resulted. Lyme screen is pending. Patient was seen here for joint pain. The CRP is slightly elevated at 12.92 normal is less than 8. This indicates some inflammation but it is only mildly elevated. Glucose was elevated at 103 normal is 70-100. Nursing to call patient inform the patient of the results. At this time the patient should continue the same treatment plan to include following up with her primary care doctor and also let her know that the Lyme results are still pending. Course/Dx - Diagnoses Provider Diagnoses: Pain, joint, multiple sites, Primary osteoarthritis, right wrist, Osteoarthritis, hip, bilateral Discharge ED - Sign-Out/Discharge Documenting (check all that apply): Patient Departure All imaging exams completed and their final reports reviewed: Yes - Discharge Plan Condition: Stable Disposition: HOME Prescriptions: celeCOXIB CAP* [CeleBREX CAP*] 200 mg PO BID #14 cap Tramadol HCl 50 mg PO BID PRN #20 tablet MDD 2 PRN Reason: Pain - Moderate Patient Education Materials: Osteoarthritis (ED) Forms: *Work Release Referrals: Nina Lambert MD [Primary Care Provider] - Additional Instructions: Lyme serology is pending along with additional labs. Increase celebrex to 200mg twice daily for one week, and add tramadol as needed for control of pain. Off work until you are assessed by Dr. Mir this week, and I suggest a follow up with Dr. Lambert to talk about skilled nursing management of arthritis. - Billing Disposition and Condition Condition: STABLE Disposition: Home
== END 2019-07-11 12:08 | disposition home or self-care (01) ==
LOC: UCEAST 10:19
DX: M25.562 Pain in left knee (principal); M25.561 Pain in right knee; M19.031 Primary osteoarthritis, right wrist; M16.0 Bilateral primary osteoarthritis of hip
CPT/HCPCS: 36415; 80053; 85025; 85060; 86140; 86618; 99212; G0463